=== PATIENT | female | born 1995 | race Two or more races ===

== ENCOUNTER 2019-12-08 13:48 | Emergency (ER) | payer OTHER ==
[~2019-12-08] VITALS: Ht 162.6 cm; Wt 63.5 kg
--- NOTE | 2019-12-08 13:50 | NUR ---
ED Nurse Note: pt brought in to ER by ambulance due to abdominal pain 10/10 with nausea x1 day. pt aao x4 and ambulatory. pt follows commands but moaning and grimacing for severe pain. per pt, she gave a a month ago without complication. no cardiac or pulmonary distress noted at this time. pt is on quality assurance monitor body.
[2019-12-08 14:00] VITALS: BP 145/89
--- NOTE | 2019-12-08 14:06 | NUR ---
ED Nurse Note: ROME at bedside. pt reported to ROME that abdominal pain started 2 hours ago right after she took crystal meth. no N/V/D at this time.
--- NOTE | 2019-12-08 14:11 | NUR ---
ED Nurse Note: pt ambulated to bathroom to provide urine with steady gait.
[2019-12-08] MEDS ORDERED: Morphine Sulfate 4mg/ml Inj (IV USE ONLY) IVP ONE (14:15)
--- NOTE | 2019-12-08 14:19 | Emergency Room Report ---
History of Present Illness General Chief Complaint: Abdominal Pain Source: Patient, EMS Present Illness HPI 24-year-old female history of section, presents with intra-abdominal pain that started 4 hours prior to arrival patient was utilizing methamphetamines, after smoking she started having pain, alleviating factors not utilize drugs severity is severe, constant patient presents for evaluation no nausea no vomiting no diarrhea no dysuria Allergies: Coded Allergies: No Known Allergies (Unverified , 12/08/19) COVID-19 Screening Contact w/high risk pt: No Recent Travel to affected area: No Experienced COVID-19 symptoms?: No Patient History Past Medical History: see triage record Reviewed Nursing Documentation: PMH: Agreed; PSxH: Agreed Nursing Documentation-PMH Past Medical History: No Stated History Review of Systems All Other Systems: negative except mentioned in HPI Physical Exam Vital Signs Date Time Temp Pulse Resp B/P (MAP) Pulse Ox O2 Delivery O2 Flow Rate FiO2 12/08/19 13:46 97.5 72 18 160/90 (113) 100 Room Air Sp02 EP Interpretation: reviewed, normal General Appearance: well appearing, no apparent distress, alert Head: normocephalic, atraumatic Eyes: bilateral eye PERRL, bilateral eye EOMI ENT: uvula midline, moist mucus membranes Neck: supple, thyroid normal, supple/symm/no masses Respiratory: lungs clear, no respiratory distress, no retraction, no accessory muscle use Cardiovascular #1: normal peripheral pulses, regular rate, rhythm, no edema, no gallop, no murmur Gastrointestinal: soft, no guarding, no rebound, tenderness - Right upper quadrant pain negative Ku's Musculoskeletal: normal inspection Neurologic: alert, oriented x3 Psychiatric: mood/affect normal Skin: no rash, warm/dry Medical Decision Making Diagnostic Impression: Primary Impression: Choledocholithiasis Additional Impression: Cholelithiasis Qualified Codes: K80.80 - Other cholelithiasis without obstruction ER Course 24-year-old female presents with right upper quadrant pain differential diagnosis includes cholelithiasis cholecystitis choledocholithiasis Patient given pain medications, ultrasound shows cholelithiasis without evidence of cholecystitis additionally patient may have choledocholithiasis with a common bile duct dilatation patient with a transaminitis Patient to be transferred to [facility] Reevaluation 5:41 PM patient wants leave AGAINST MEDICAL ADVICE The patient has requested to leave the ED against medical advice. The patient reason(s) for leaving include, but are not limited to, the following: I don't want to go to [facility]. I believe this patient is of sound mind and competent to refuse medical care. The patient is responding and asking questions appropriately. The patient is oriented to person, place and time. The patient is not psychotic, delusional, suicidal, homicidal or hallucinating. The patient demonstrates a normal mental capacity to make decisions regarding their healthcare. The patient is clinically sober and does not appear to be under the influence of any illicit drugs at this time. The patient has been advised of the risks, in layman terms, of leaving AMA which include, but are not limited to , coma, permanent disability, loss of current lifestyle, delay in diagnosis. Alternatives have been offered - the patient remains steadfast in their wish to leave. The patient has been advised that should they change their mind they are welcome to return to this hospital, or any other, at any time. The patient understands that in no way does an AMA discharge mean that I do not want them to have the best medical care available. To this end, I have provided appropriate prescriptions, referrals, and discharge instructions. The patient did sign AMA paperwork. The above discussion was witnessed by another member of staff. Laboratory Tests Test 12/08/19 14:20 White Blood Count 10.1 K/UL (4.8-10.8) Red Blood Count 4.12 M/UL (4.20-5.40) L Hemoglobin 9.5 G/DL (12.0-16.0) L Hematocrit 30.5 % (37.0-47.0) L Mean Corpuscular Volume 74 FL (80-99) L Mean Corpuscular Hemoglobin 23.1 PG (27.0-31.0) L Mean Corpuscular Hemoglobin Concent 31.2 G/DL (32.0-36.0) L Red Cell Distribution Width 17.6 % (11.6-14.8) H Platelet Count 469 K/UL (150-450) H Mean Platelet Volume 4.8 FL (6.5-10.1) L Neutrophils (%) (Auto) 76.9 % (45.0-75.0) H Lymphocytes (%) (Auto) 14.1 % (20.0-45.0) L Monocytes (%) (Auto) 7.5 % (1.0-10.0) Eosinophils (%) (Auto) 0.4 % (0.0-3.0) Basophils (%) (Auto) 1.2 % (0.0-2.0) Prothrombin Time 10.0 SEC (9.30-11.50) Prothrombin Time INR 0.9 (0.9-1.1) Activated Partial Thromboplast Time 28 SEC (23-33) Urine Color Brown Urine Appearance Clear Urine pH 5 (4.5-8.0) Urine Specific [place] 1.030 (1.005-1.035) Urine Protein 3+ (NEGATIVE) H Urine Glucose (UA) Negative (NEGATIVE) Urine Ketones 2+ (NEGATIVE) H Urine Blood 5+ (NEGATIVE) H Urine Nitrite Negative (NEGATIVE) Urine Bilirubin Negative (NEGATIVE) Urine Urobilinogen 1 MG/DL (0.0-1.0) H Urine Leukocyte Esterase 3+ (NEGATIVE) H Urine RBC 60-80 /HPF (0 - 2) H Urine WBC 40-60 /HPF (0 - 2) H Urine Squamous Epithelial Cells Few /LPF (NONE/OCC) Urine Bacteria Few /HPF (NONE) Urine Mucus Few /LPF (NONE/OCC) H Urine HCG, Qualitative Negative (NEGATIVE) Sodium Level 147 MMOL/L (136-145) H Potassium Level 3.5 MMOL/L (3.5-5.1) Chloride Level 110 MMOL/L (98-107) H Carbon Dioxide Level 25 MMOL/L (21-32) Anion Gap 12 mmol/L (5-15) Blood Urea Nitrogen 11 mg/dL (7-18) Creatinine 1.2 MG/DL (0.55-1.30) Estimated Glomerular Filtration Rate 54.3 mL/min (>60) Glucose Level 104 MG/DL (74-106) Calcium Level 9.3 MG/DL (8.5-10.1) Total Bilirubin 0.4 MG/DL (0.2-1.0) Aspartate Amino Transferase (AST) 109 U/L (15-37) H Alanine Aminotransferase (ALT) 91 U/L (12-78) H Alkaline Phosphatase 229 U/L (46-116) H Total Protein 8.2 G/DL (6.4-8.2) Albumin 4.3 G/DL (3.4-5.0) Globulin 3.9 g/dL Albumin/Globulin Ratio 1.1 (1.0-2.7) Lipase 63 U/L (73-393) L Human Chorionic Gonadotropin, Quant < 1 mIU/mL (1-6) L CT/MRI/US Diagnostic Results CT/MRI/US Diagnostic Results : Impression Ultrasound gallbladder cholelithiasis, dilated common bile duct Last Vital Signs Date Time Temp Pulse Resp B/P (MAP) Pulse Ox O2 Delivery O2 Flow Rate FiO2 12/08/19 13:46 97.5 72 18 160/90 (113) 100 Room Air Disposition: AGAINST MEDICAL ADVICE Condition: Stable Referrals: [facility]. [facility] Patient Instructions: Cholelithiasis, [id number] Additional Instructions: The patient was provided with discharge instructions, notified to follow-up with a primary care doctor and or specialist in the next 24-48 hours, and to return to the ED if they have worsening of their symptoms. Please note that this report is being documented using [employer] technology. This can lead to erroneous entry secondary to incorrect interpretation by the dictating instrument. Iain Navarro MD December 08, 2019 14:19
--- NOTE | 2019-12-08 14:26 | NUR ---
ED Nurse Note: urine and blood sent to lab. US initiated at bedside.
[2019-12-08 14:45] LABS: BASOPHILS % (AUTO) 1.2 % (0.0-2.0); EOSINOPHILS % (AUTO) 0.4 % (0.0-3.0); HEMATOCRIT 30.5 % (37.0-47.0); HEMOGLOBIN 9.5 G/DL (12.0-16.0); LYMPHOCYTES % (AUTO) 14.1 % (20.0-45.0); MEAN CORPUSCULAR VOLUME 74 FL (80-99); MONOCYTES % (AUTO) 7.5 % (1.0-10.0); NEUTROPHILS % (AUTO) 76.9 % (45.0-75.0); PLATELET COUNT 469 K/UL (150-450); RED BLOOD COUNT 4.12 M/UL (4.20-5.40); RED CELL DISTRIBUTION WIDTH 17.6 % (11.6-14.8); WHITE BLOOD COUNT 10.1 K/UL (4.8-10.8)
[2019-12-08 14:46] LABS: APPEARANCE,URINE CLEAR; BILIRUBIN, URINE NEGATIVE (NEGATIVE); COLOR,URINE BROWN; GLUCOSE, URINE (UA) NEGATIVE (NEGATIVE); KETONES,URINE 2+ (NEGATIVE); LEUKOCYTE ESTERASE ,URINE 3+ (NEGATIVE); NITRITE,URINE NEGATIVE (NEGATIVE); PH,URINE 5 (4.5-8.0); PROTEIN,URINE 3+ (NEGATIVE); UROBILINOGEN,URINE 1 MG/DL (0.0-1.0)
[2019-12-08 14:49] LABS: INR 0.9 (0.9-1.1)
[2019-12-08 14:52] LABS: ANION GAP 12 mmol/L (5-15); BLOOD UREA NITROGEN 11 mg/dL (7-18); CALCIUM 9.3 MG/DL (8.5-10.1); CARBON DIOXIDE 25 MMOL/L (21-32); CHLORIDE 110 MMOL/L (98-107); CREATININE 1.2 MG/DL (0.55-1.30); POTASSIUM 3.5 MMOL/L (3.5-5.1); SODIUM 147 MMOL/L (136-145)
[2019-12-08 14:57] LABS: ALANINE AMINOTRANSFERASE 91 U/L (12-78); ALBUMIN 4.3 G/DL (3.4-5.0); ALBUMIN/GLOBULIN RATIO 1.1 (1.0-2.7); ALKALINE PHOSPHATASE 229 U/L (46-116); ASPARTATE AMINO TRANSFERASE 109 U/L (15-37); BILIRUBIN,TOTAL 0.4 MG/DL (0.2-1.0)
--- NOTE | 2019-12-08 15:25 | Diagnostic Imaging Report ---
Indication: Abnormal liver function tests, abdominal pain Technique: Ortega-scale and duplex images of the upper abdomen were obtained. Doppler interrogation of the pancreatic and hepatic vessels Comparison: none Findings: Gallbladder history small gallstones. No gallbladder wall thickening or pericholecystic fluid. Sonographic Ku's sign is negative. Common bile duct measures 10 mm in diameter. Calculi are seen within the downstream common bile duct. There is mild central intrahepatic biliary ductal dilatation. Liver demonstrates normal echogenicity, no focal abnormality. Portal vein and hepatic veins are patent. Pancreas is unremarkable. Spleen is unremarkable. Left kidney measures 10.4 cm in length. Right kidney measures 10.2 cm length. Both kidneys demonstrate normal echogenicity. There is no hydronephrosis. No focal abnormality . Non-aneurysmal abdominal aorta . Impression: Cholelithiasis Choledocholithiasis. Dilated extrahepatic bile ducts No other significant abnormality
[2019-12-08 16:48] VITALS: BP 145/89
--- NOTE | 2019-12-08 16:49 | NUR ---
ED Nurse Note: patient is pain free, resting in the bed with eyes close, NAD noted, awaiting for transfer information.
[2019-12-08 17:46] VITALS: BP 145/89
--- NOTE | 2019-12-08 17:46 | NUR ---
ED Nurse Note: Patient left AMA. Stated does not want to be transfered to another hospital, want to be admited to OM. Dr. Navarro explained to the patient all risks and dangers if she is going to leave AMA. Patient decided to leave AMA anyway. Patient was able to walk with steady gait, VSS at this time, AAO x4, skin is warm to touch. Patient left with all belongings.
--- NOTE | 2019-12-08 18:07 | NUR ---
AMA: SEE AMA FORM.
== END 2019-12-08 17:46 | disposition left against medical advice (07) ==
LOC: EDBD 13:48 → EMR 15:15 → EDBEDREQ 15:54 → EMR 17:46 → CANBEDREQ 17:51
DX: K80.50 Calculus of bile duct without cholangitis or cholecystitis without obstruction (principal); K80.80 Other cholelithiasis without obstruction; Z53.29 Procedure and treatment not carried out because of patient's decision for other reasons; F15.90 Other stimulant use, unspecified, uncomplicated
CPT/HCPCS: 36415; 76700; 80053; 81003; 81025; 83690; 84702; 85025; 85610; 85730; 87086; 96361; 96374; 96375; J2270; J2405; J7030; Z7502; 99284

== ENCOUNTER 2019-12-20 23:35 | Emergency (ER) | payer OTHER ==
[~2019-12-20] VITALS: Ht 167.6 cm; Wt 63.5 kg
[2019-12-20 23:38] VITALS: BP 112/62
--- NOTE | 2019-12-20 23:38 | NUR ---
ED Nurse Note: Patient brought in by ambulance with complaints of sudden onset of abdominal pain similar to recent gall bladder pain 2 weeks ago. PAtienty admits ton taking methn before onset of pain. Blood specimen collected and sent to lab.
--- NOTE | 2019-12-20 23:43 | Emergency Room Report ---
History of Present Illness General Chief Complaint: Abdominal Pain Source: Patient Present Illness [facility] This a 24-year-old female with a history of methamphetamine abuse. She presents with chief complaint of abdominal pain. Onset was 4 hours ago. Pain is diffuse in nature. Occurred after smoking methamphetamine. She was here 2 weeks ago for similar complaint. Work-up there showed cholelithiasis. Patient was to be transferred to [facility] but she signed out AMA. She has similar symptom in the past but she has nausea and vomiting but no diarrhea. No fever chills. Pain is 10 out of 10. Came in by ambulance. Allergies: Coded Allergies: No Known Allergies (Unverified , 12/08/19) COVID-19 Screening Contact w/high risk pt: No Recent Travel to affected area: No Experienced COVID-19 symptoms?: No COVID-19 Testing performed STORE CASHIER: No Patient History Past Medical History: see triage record, old chart reviewed Past Surgical History: none Pertinent Family History: none Social History: Reports: smoking, drug use Last Menstrual Period: 11/26/19 Now: No Immunizations: other Reviewed Nursing Documentation: PMH: Agreed; PSxH: Agreed Nursing Documentation-PMH Past Medical History: No History, Except For Review of Systems Eye: Denies: eye pain, blurred vision ENT: Denies: ear pain, nose congestion, throat swelling Respiratory: Denies: cough, shortness of breath Cardiovascular: Denies: chest pain, palpitations Gastrointestinal: Reports: abdominal pain, nausea, vomiting; Denies: diarrhea Musculoskeletal: Denies: back pain, joint pain Skin: Denies: rash Neurological: Denies: headache, numbness Endocrine: Denies: increased thirst, increased urine Hematologic/Lymphatic: Denies: easy bruising All Other Systems: negative except mentioned in HPI Physical Exam Vital Signs Date Time Temp Pulse Resp B/P (MAP) Pulse Ox O2 Delivery O2 Flow Rate FiO2 12/20/19 23:36 99.0 102 16 112/62 (79) 99 Room Air Vitals normal Sp02 EP Interpretation: reviewed, normal General Appearance: well appearing, no apparent distress, alert Head: normocephalic, atraumatic Eyes: bilateral eye PERRL, bilateral eye EOMI ENT: hearing grossly normal, normal pharynx Neck: full range of motion, supple, no meningismus Respiratory: chest non-tender, lungs clear, normal breath sounds Cardiovascular #1: regular rate, rhythm, no murmur Gastrointestinal: normal bowel sounds, no mass, no organomegaly, no bruit, non- distended, tenderness - Diffuse Musculoskeletal: back normal, normal range of motion, gait/station normal Psychiatric: mood/affect normal Medical Decision Making Diagnostic Impression: Primary Impression: Cholelithiasis Qualified Codes: K80.20 - Calculus of gallbladder without cholecystitis without obstruction Additional Impressions: Methamphetamine abuse UTI (urinary tract infection) Qualified Codes: N30.00 - Acute cystitis without hematuria ER Course Patient presents with abdominal pain. This may be secondary to drug abuse and or cholelithiasis. Pain is resolved now. Patient felt better. She does have a mild urinary tract infection. May be contamination. I will go ahead and put her on antibiotics. She wants to go home. Will discharge home. Last Vital Signs Date Time Temp Pulse Resp B/P (MAP) Pulse Ox O2 Delivery O2 Flow Rate FiO2 12/20/19 23:36 99.0 102 16 112/62 (79) 99 Room Air Status: improved Disposition: HOME, SELF-CARE Condition: Stable Scripts Nitrofurantoin Monohyd/M-Cryst (Nitrofurantoin Christian-Mcr 100 mg) 100 Mg Capsule 100 MG ORAL Q12H, #14 CAP Prov: Ivan Cadena MD 12/21/19 Hydrocodone/Acetaminophen 5-325* (HYDROCODONE/ACETAMINOPHEN 5-325*) 1 Each Tablet 1 TAB ORAL Q6H PRN for For Pain, #15 TAB 0 Refills Prov: Ivan Cadena MD 12/21/19 Additional Instructions: Stop using drugs. Follow-up with your doctor in 7 days. You may need a referral to see a surgeon. Return if worse. Ivan Cadena MD December 20, 2019 23:43
[2019-12-20] MEDS ORDERED: HYDROmorphone 1mg/ml Carpuject IVP ONE (23:45)
[2019-12-21 00:13] LABS: BASOPHILS % (AUTO) 1.2 % (0.0-2.0); HEMATOCRIT 32.6 % (37.0-47.0); HEMOGLOBIN 10.6 G/DL (12.0-16.0); LYMPHOCYTES % (AUTO) 22.1 % (20.0-45.0); MEAN CORPUSCULAR VOLUME 71 FL (80-99); MONOCYTES % (AUTO) 7.1 % (1.0-10.0); NEUTROPHILS % (AUTO) 67.6 % (45.0-75.0); PLATELET COUNT 539 K/UL (150-450); RED BLOOD COUNT 4.62 M/UL (4.20-5.40); RED CELL DISTRIBUTION WIDTH 16.6 % (11.6-14.8); WHITE BLOOD COUNT 9.9 K/UL (4.8-10.8)
--- NOTE | 2019-12-21 00:17 | NUR ---
ED Nurse Note: Patient appears, calm, comfortable with no s/s of acute distress. Vital signs stable and updated. Will continue to monitor for plan of care.
[2019-12-21 00:18] VITALS: BP 124/78
[2019-12-21 00:18] LABS: ANION GAP 11 mmol/L (5-15); BLOOD UREA NITROGEN 13 mg/dL (7-18); CALCIUM 9.6 MG/DL (8.5-10.1); CARBON DIOXIDE 27 MMOL/L (21-32); CHLORIDE 106 MMOL/L (98-107); CREATININE 1.2 MG/DL (0.55-1.30); POTASSIUM 3.6 MMOL/L (3.5-5.1); SODIUM 144 MMOL/L (136-145)
[2019-12-21 00:22] LABS: ALANINE AMINOTRANSFERASE 99 U/L (12-78); ALBUMIN 4.5 G/DL (3.4-5.0); ALBUMIN/GLOBULIN RATIO 1.2 (1.0-2.7); ALKALINE PHOSPHATASE 246 U/L (46-116); ASPARTATE AMINO TRANSFERASE 168 U/L (15-37); BILIRUBIN,TOTAL 0.7 MG/DL (0.2-1.0)
--- NOTE | 2019-12-21 00:31 | NUR ---
ED Nurse Note: Patient currently voiding at bedside for urine specimen collection via bedside commode.
--- NOTE | 2019-12-21 00:47 | NUR ---
ED Nurse Note: Urine specimen sent to lab.
[2019-12-21 00:49] LABS: BILIRUBIN, URINE 1+ (NEGATIVE); GLUCOSE, URINE (UA) NEGATIVE (NEGATIVE); KETONES,URINE 1+ (NEGATIVE); LEUKOCYTE ESTERASE ,URINE 1+ (NEGATIVE); NITRITE,URINE NEGATIVE (NEGATIVE); PH,URINE 5 (4.5-8.0); PROTEIN,URINE 2+ (NEGATIVE); UROBILINOGEN,URINE 8 MG/DL (0.0-1.0)
[2019-12-21 00:59] LABS: APPEARANCE,URINE SLIGHTLY CLOUDY; COLOR,URINE AMBER
--- NOTE | 2019-12-21 01:15 | NUR ---
Patients brother called-per ER MD he can pick her up. Brother on his way here.
[2019-12-21] MEDS ORDERED: MACROBID100 MG ORAL (01:27)
[2019-12-21] MEDS ORDERED: HYDROCODON-ACE1 EA15 ORAL (01:27)
[2019-12-21] MEDS ORDERED: cefTRIAXone 1 GM in NS 55 ML IVPB ONE (01:30)
[2019-12-21 01:55] VITALS: BP 126/73
--- NOTE | 2019-12-21 01:55 | NUR ---
ER DISCHARGE NOTE: Patient is cleared to be discharged per ERMD, pt is aox4, on room air, with stable vital signs. pt was given dc and prescription instructions, pt was able to verbalize understanding, pt id band and iv site removed without complications. pt is able to ambulate with steady gait. pt took all belongings.
== END 2019-12-21 01:55 | disposition home or self-care (01) ==
LOC: EDBD 23:35 → EMR 23:46
DX: K80.20 Calculus of gallbladder without cholecystitis without obstruction (principal); F15.10 Other stimulant abuse, uncomplicated; N30.00 Acute cystitis without hematuria; F17.200 Nicotine dependence, unspecified, uncomplicated
CPT/HCPCS: 36415; 80053; 81003; 81025; 83690; 85025; 87086; 96361; 96365; 96375; J0696; J1170; J2405; J7030; Z7502; 99284

== ENCOUNTER 2019-12-23 05:59 | Emergency (ER) | payer OTHER ==
[~2019-12-23] VITALS: Ht 154.9 cm; Wt 54.4 kg
[~2019-12-23 05:59] MED LIST: HYDROCODON-ACE1 EA15 ORAL; MACROBID100 MG ORAL
[2019-12-23 06:20] VITALS: BP 120/97
--- NOTE | 2019-12-23 06:20 | NUR ---
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 Pt also reports nausea, but no diarrhea or vomiting. Pt was recently seen at [facility] and diagnosed with gallstones and UTI which she was prescribed medicatin for and was not able to obtain from the pharmacy. Pt is aaox4, breathing is normal and unlabored. Pt appears anxious and moaning in pain. 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 Will cont. to monitor. Safety measures in place.
[2019-12-23] MEDS ORDERED: Morphine Sulfate 4mg/ml Inj (IV USE ONLY) IVP ONE (06:30)
[2019-12-23] MEDS ORDERED: Omnipaque-300 100ml vial INJ PRN (06:45)
[2019-12-23 06:51] LABS: BASOPHILS % (AUTO) 1.3 % (0.0-2.0); EOSINOPHILS % (AUTO) 4.4 % (0.0-3.0); HEMOGLOBIN 9.8 G/DL (12.0-16.0); LYMPHOCYTES % (AUTO) 22.2 % (20.0-45.0); MEAN CORPUSCULAR VOLUME 71 FL (80-99); MONOCYTES % (AUTO) 7.4 % (1.0-10.0); NEUTROPHILS % (AUTO) 64.8 % (45.0-75.0); PLATELET COUNT 481 K/UL (150-450); RED BLOOD COUNT 4.25 M/UL (4.20-5.40); RED CELL DISTRIBUTION WIDTH 16.5 % (11.6-14.8); WHITE BLOOD COUNT 10.5 K/UL (4.8-10.8)
[2019-12-23 06:52] LABS: APPEARANCE,URINE CLEAR; BILIRUBIN, URINE NEGATIVE (NEGATIVE); GLUCOSE, URINE (UA) NEGATIVE (NEGATIVE); KETONES,URINE NEGATIVE (NEGATIVE); LEUKOCYTE ESTERASE ,URINE 1+ (NEGATIVE); NITRITE,URINE NEGATIVE (NEGATIVE); PH,URINE 6 (4.5-8.0); PROTEIN,URINE 2+ (NEGATIVE); UROBILINOGEN,URINE 1 MG/DL (0.0-1.0)
--- NOTE | 2019-12-23 06:56 | Emergency Room Report ---
History of Present Illness General Chief Complaint: Abdominal Pain Source: Patient Present Illness HPI 24-year-old female presents to ED for abdominal pain. Was seen here a few days ago for same pain. Noted to have gallstones. Patient states she is unable to fill her pain prescriptions because she does not have an ID. Pain is sharp, 9 out of 10, nonradiating. Notes nausea, denies vomiting. Denies fevers or chills. No other aggravating relieving factors. 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: No Patient History Past Medical History: none Past Surgical History: none Pertinent Family History: none Social History: Denies: smoking, alcohol use, drug use Now: No Immunizations: UTD Reviewed Nursing Documentation: PMH: Agreed; PSxH: Agreed Nursing Documentation-PMH Past Medical History: No History, Except For Review of Systems All Other Systems: negative except mentioned in HPI Physical Exam Vital Signs Date Time Temp Pulse Resp B/P (MAP) Pulse Ox O2 Delivery O2 Flow Rate FiO2 12/23/19 06:07 97.5 63 18 147/84 (105) 100 Room Air Sp02 EP Interpretation: reviewed, normal General Appearance: alert, GCS 15, non-toxic, mild distress Head: normocephalic, atraumatic Eyes: bilateral eye normal inspection, bilateral eye PERRL ENT: hearing grossly normal, normal pharynx, no angioedema, normal voice Neck: full range of motion, supple/symm/no masses Respiratory: chest non-tender, lungs clear, normal breath sounds, speaking full sentences Cardiovascular #1: regular rate, rhythm, no edema Cardiovascular #2: 2+ carotid (R), 2+ carotid (L), 2+ radial (R), 2+ radial (L) , 2+ dorsalis pedis (R), 2+ dorsalis pedis (L) Gastrointestinal: normal bowel sounds, soft, non-distended, no guarding, no rebound, tenderness - RUQ Rectal: deferred Genitourinary: normal inspection, no CVA tenderness Musculoskeletal: back normal, normal range of motion, gait/station normal, non- tender Neurologic: alert, motor strength/tone normal, oriented x3, sensory intact, responsive, speech normal Psychiatric: judgement/insight normal, memory normal, mood/affect normal, no suicidal/homicidal ideation Reflexes: 3+ bicep (R), 3+ bicep (L), 3+ tricep (R), 3+ tricep (L), 3+ knee (R) , 3+ knee (L) Skin: no rash Lymphatic: no adenopathy Medical Decision Making Diagnostic Impression: Primary Impression: Biliary colic Additional Impression: Methamphetamine abuse ER Course Hospital Course 24-year-old F presents to ED with RUQ pain Differential diagnoses include: Appendicitis, cholecystitis, small bowel obstruction Clinical course 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 After initial history and physical I ordered labs, IV fluids, UA, pain medication and CT Labs - no leukocytosis, Hb/Hct stable. electrolytes ok. LFTs elevated. CT A/P - distended GB Antibiotics given. Patient continues to have pain. Patient has been here 3 times for similar presentation this month. Patient agrees to admission at this time. Because of insurance patient will be transferred I feel this is a highly complex case requiring extensive working including EKG/ Rhythm strip, Xray/CT/US, Blood/urine lab work, repeat exams while in ED, and administration of strong opiates/narcotics for pain control, admission to hospital or close patient follow up. Diagnosis - biliary colic, methammphetamine abuse transferred in serious condition Labs Test 12/23/19 06:30 White Blood Count 10.5 K/UL (4.8-10.8) Red Blood Count 4.25 M/UL (4.20-5.40) Hemoglobin 9.8 G/DL (12.0-16.0) Hematocrit 30.0 % (37.0-47.0) Mean Corpuscular Volume 71 FL (80-99) Mean Corpuscular Hemoglobin 23.1 PG (27.0-31.0) Mean Corpuscular Hemoglobin Concent 32.7 G/DL (32.0-36.0) Red Cell Distribution Width 16.5 % (11.6-14.8) Platelet Count 481 K/UL (150-450) Mean Platelet Volume 4.8 FL (6.5-10.1) Neutrophils (%) (Auto) 64.8 % (45.0-75.0) Lymphocytes (%) (Auto) 22.2 % (20.0-45.0) Monocytes (%) (Auto) 7.4 % (1.0-10.0) Eosinophils (%) (Auto) 4.4 % (0.0-3.0) Basophils (%) (Auto) 1.3 % (0.0-2.0) Urine Color Yellow Urine Appearance Clear Urine pH 6 (4.5-8.0) Urine Specific [place] 1.025 (1.005-1.035) Urine Protein 2+ (NEGATIVE) Urine Glucose (UA) Negative (NEGATIVE) Urine Ketones Negative (NEGATIVE) Urine Blood 1+ (NEGATIVE) Urine Nitrite Negative (NEGATIVE) Urine Bilirubin Negative (NEGATIVE) Urine Urobilinogen 1 MG/DL (0.0-1.0) Urine Leukocyte Esterase 1+ (NEGATIVE) Urine RBC 0-2 /HPF (0 - 2) Urine WBC 5-10 /HPF (0 - 2) Urine Squamous Epithelial Cells Few /LPF (NONE/OCC) Urine Bacteria Few /HPF (NONE) Urine Mucus Few /LPF (NONE/OCC) Urine HCG, Qualitative Negative (NEGATIVE) Sodium Level 141 MMOL/L (136-145) Potassium Level 3.5 MMOL/L (3.5-5.1) Chloride Level 105 MMOL/L (98-107) Carbon Dioxide Level 25 MMOL/L (21-32) Anion Gap 11 mmol/L (5-15) Blood Urea Nitrogen 13 mg/dL (7-18) Creatinine 1.1 MG/DL (0.55-1.30) Estimat Glomerular Filtration Rate > 60 mL/min (>60) Glucose Level 108 MG/DL (74-106) Calcium Level 9.7 MG/DL (8.5-10.1) Total Bilirubin 0.4 MG/DL (0.2-1.0) Aspartate Amino Transf (AST/SGOT) 130 U/L (15-37) Alanine Aminotransferase (ALT/SGPT) 94 U/L (12-78) Alkaline Phosphatase 226 U/L (46-116) Total Protein 7.7 G/DL (6.4-8.2) Albumin 4.1 G/DL (3.4-5.0) Globulin 3.6 g/dL Albumin/Globulin Ratio 1.1 (1.0-2.7) Lipase 140 U/L (73-393) Urine Opiates Screen Negative (NEGATIVE) Urine Barbiturates Screen Negative (NEGATIVE) Phencyclidine (PCP) Screen Negative (NEGATIVE) Urine Amphetamines Screen Positive (NEGATIVE) Urine Benzodiazepines Screen Negative (NEGATIVE) Urine Cocaine Screen Negative (NEGATIVE) Urine Marijuana (THC) Screen Positive (NEGATIVE) CT/MRI/US Diagnostic Results CT/MRI/US Diagnostic Results : Imaging Test Ordered: CT A/P Impression FINDINGS: Lung bases: Unremarkable. No mass. No consolidation. ABDOMEN: Liver: Mild periportal edema, nonspecific. Focal low density in the medial left hepatic lobe along the falciform ligament likely pseudomass. Gallbladder and bile ducts: Mildly distended gallbladder, nonspecific. No secondary signs for acute cholecystitis. Prominent common bile duct, nonspecific. Pancreas: Unremarkable. No mass. No ductal dilation. Spleen: Unremarkable. No splenomegaly. Adrenals: Unremarkable. No mass. Kidneys and ureters: Presumed contrast in the renal collecting system which limited evaluation for detecting nonobstructing renal calculi. Stomach and bowel: Paucity of intra-abdominal fat and absence oral contrast limit evaluation of the GI tract. Apparent thickening of the rectosigmoid colon which may partly reflect under distention. Recommend clinical correlation and follow-up to exclude developing inflammatory/infectious colitis. Nonspecific bowel gas pattern with mild to moderate stool. PELVIS: Appendix: Nonspecific soft tissue stranding along the mesentery and right lower quadrant peritoneal fat. No secondary signs for appendicitis. Bladder: Thickening of the bladder wall likely due to under distention. Recommend clinical correlation and follow-up to exclude developing cystitis. Reproductive: Retroverted uterus. ABDOMEN and PELVIS: Intraperitoneal space: Small free fluid in the pelvis, nonspecific. No free air. Bones/joints: No acute fracture. No dislocation. Soft tissues: Tiny periumbilical hernia containing fat. Vasculature: Unremarkable. No abdominal aortic aneurysm. Lymph nodes: Unremarkable. No enlarged lymph nodes. IMPRESSION: 1. Mild thickening of the rectosigmoid colon which may partly reflect underdistention. Recommend clinical correlation and follow-up to exclude developing inflammatory/infectious colitis. 2. Tiny free fluid in the pelvis, nonspecific. No free air. 3. Thickening of the bladder wall likely due to under distention. Recommend clinical correlation and follow-up to exclude developing cystitis. 4. Nonspecific bowel gas pattern with mild to moderate retained stool. Paucity of intra-abdominal fat and absence oral contrast limit evaluation of the GI tract. 5. No CT evidence for appendicitis. 6. Distended gallbladder, nonspecific. Last Vital Signs Date Time Temp Pulse Resp B/P (MAP) Pulse Ox O2 Delivery O2 Flow Rate FiO2 12/23/19 06:20 63 18 Room Air 12/23/19 06:20 97.5 120/97 100 Status: improved Disposition: SHORT-TERM HOSP Condition: Serious Referrals: [facility],REFERRING (PCP) Willis Live MD December 23, 2019 06:56
[2019-12-23 06:58] LABS: COLOR,URINE YELLOW
[2019-12-23 07:03] LABS: ANION GAP 11 mmol/L (5-15); BLOOD UREA NITROGEN 13 mg/dL (7-18); CALCIUM 9.7 MG/DL (8.5-10.1); CARBON DIOXIDE 25 MMOL/L (21-32); CHLORIDE 105 MMOL/L (98-107); CREATININE 1.1 MG/DL (0.55-1.30); POTASSIUM 3.5 MMOL/L (3.5-5.1); SODIUM 141 MMOL/L (136-145)
[2019-12-23 07:08] LABS: ALANINE AMINOTRANSFERASE 94 U/L (12-78); ALBUMIN 4.1 G/DL (3.4-5.0); ALBUMIN/GLOBULIN RATIO 1.1 (1.0-2.7); ALKALINE PHOSPHATASE 226 U/L (46-116); ASPARTATE AMINO TRANSFERASE 130 U/L (15-37); BILIRUBIN,TOTAL 0.4 MG/DL (0.2-1.0)
--- NOTE | 2019-12-23 07:10 | NUR ---
HAND-OFF: Report given to PAUL Dunlap and endorsed plan of care.
--- NOTE | 2019-12-23 07:11 | NUR ---
ED Nurse Note: Received patient in bed, patient is resting in bed. 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
--- NOTE | 2019-12-23 07:15 | NUR ---
ED Nurse Note: patient taken to CT scan
--- NOTE | 2019-12-23 07:25 | NUR ---
ED Nurse Note: patient taken back from CT scan.
--- NOTE | 2019-12-23 07:26 | NUR ---
ED Nurse Note: patient placed back on the monitor, patient is receiving IVF as ordered without complications.
[2019-12-23 07:48] VITALS: BP 126/73
--- NOTE | 2019-12-23 07:50 | Diagnostic Imaging Report ---
EXAM: CT Abdomen and Pelvis With Intravenous Contrast CLINICAL HISTORY: ABD PAIN TECHNIQUE: Axial computed tomography images of the abdomen and pelvis with intravenous contrast. CTDI is 3.9 mGy and DLP is 202.1 mGy-cm. One or more of the following dose reduction techniques were used: automated exposure control, adjustment of the mA and/or kV according to patient size, use of iterative reconstruction technique. COMPARISON: No prior CT FINDINGS: Lung bases: Unremarkable. No mass. No consolidation. ABDOMEN: Liver: Mild periportal edema, nonspecific. Focal low density in the medial left hepatic lobe along the falciform ligament likely pseudomass. Gallbladder and bile ducts: Mildly distended gallbladder, nonspecific. No secondary signs for acute cholecystitis. Prominent common bile duct, nonspecific. Pancreas: Unremarkable. No mass. No ductal dilation. Spleen: Unremarkable. No splenomegaly. Adrenals: Unremarkable. No mass. Kidneys and ureters: Presumed contrast in the renal collecting system which limited evaluation for detecting nonobstructing renal calculi. Stomach and bowel: Paucity of intra-abdominal fat and absence oral contrast limit evaluation of the GI tract. Apparent thickening of the rectosigmoid colon which may partly reflect under distention. Recommend clinical correlation and follow-up to exclude developing inflammatory/infectious colitis. Nonspecific bowel gas pattern with mild to moderate stool. PELVIS: Appendix: Nonspecific soft tissue stranding along the mesentery and right lower quadrant peritoneal fat. No secondary signs for appendicitis. Bladder: Thickening of the bladder wall likely due to under distention. Recommend clinical correlation and follow-up to exclude developing cystitis. Reproductive: Retroverted uterus. ABDOMEN and PELVIS: Intraperitoneal space: Small free fluid in the pelvis, nonspecific. No free air. Bones/joints: No acute fracture. No dislocation. Soft tissues: Tiny periumbilical hernia containing fat. Vasculature: Unremarkable. No abdominal aortic aneurysm. Lymph nodes: Unremarkable. No enlarged lymph nodes. IMPRESSION: 1. Mild thickening of the rectosigmoid colon which may partly reflect underdistention. Recommend clinical correlation and follow-up to exclude developing inflammatory/infectious colitis. 2. Tiny free fluid in the pelvis, nonspecific. No free air. 3. Thickening of the bladder wall likely due to under distention. Recommend clinical correlation and follow-up to exclude developing cystitis. 4. Nonspecific bowel gas pattern with mild to moderate retained stool. Paucity of intra-abdominal fat and absence oral contrast limit evaluation of the GI tract. 5. No CT evidence for appendicitis. 6. Distended gallbladder, nonspecific.
[2019-12-23] MEDS ORDERED: cefTRIAXone 1 GM in NS 55 ML IVPB ONE (09:00)
--- NOTE | 2019-12-23 11:19 | NUR ---
ED Nurse Note: report given to Diana MILLER at [facility], patient left with [facility] with all of her belongings
[2019-12-23 11:27] VITALS: BP 126/73
== END 2019-12-23 11:20 | disposition short-term general hospital (02) ==
LOC: EMR 06:15
DX: K80.50 Calculus of bile duct without cholangitis or cholecystitis without obstruction (principal); F15.10 Other stimulant abuse, uncomplicated; R11.0 Nausea; K42.9 Umbilical hernia without obstruction or gangrene
CPT/HCPCS: 36415; 74177; 80053; 80307; 81003; 81025; 83690; 85025; 96361; 96365; 96375; J0696; J2270; J2405; J7030; Q9967; S0028; Z7502; 99285

== ENCOUNTER 2019-12-26 19:08 | Emergency (ER) | payer OTHER ==
[~2019-12-26] VITALS: Ht 157.5 cm; Wt 54.4 kg
[2019-12-26 19:18] VITALS: BP 134/80
[2019-12-26] MEDS ORDERED: Morphine Sulfate 4mg/ml Inj (IV USE ONLY) IVP ONE (19:30)
[2019-12-26 20:33] LABS: BASOPHILS % (AUTO) 1.5 % (0.0-2.0); HEMATOCRIT 33.4 % (37.0-47.0); HEMOGLOBIN 9.8 G/DL (12.0-16.0); LYMPHOCYTES % (AUTO) 22.1 % (20.0-45.0); MEAN CORPUSCULAR VOLUME 76 FL (80-99); MONOCYTES % (AUTO) 7.6 % (1.0-10.0); NEUTROPHILS % (AUTO) 67.8 % (45.0-75.0); PLATELET COUNT 505 K/UL (150-450); RED BLOOD COUNT 4.38 M/UL (4.20-5.40); RED CELL DISTRIBUTION WIDTH 18.7 % (11.6-14.8)
[2019-12-26 20:35] LABS: ANION GAP 12 mmol/L (5-15); BLOOD UREA NITROGEN 7 mg/dL (7-18); CALCIUM 9.8 MG/DL (8.5-10.1); CARBON DIOXIDE 25 MMOL/L (21-32); CHLORIDE 106 MMOL/L (98-107); CREATININE 1.2 MG/DL (0.55-1.30); POTASSIUM 3.9 MMOL/L (3.5-5.1); SODIUM 143 MMOL/L (136-145)
[2019-12-26 20:39] LABS: ALANINE AMINOTRANSFERASE 89 U/L (12-78); ALBUMIN 4.5 G/DL (3.4-5.0); ALBUMIN/GLOBULIN RATIO 1.2 (1.0-2.7); ALKALINE PHOSPHATASE 203 U/L (46-116); ASPARTATE AMINO TRANSFERASE 79 U/L (15-37); BILIRUBIN,TOTAL 0.5 MG/DL (0.2-1.0)
[2019-12-26 21:13] VITALS: BP 134/80
--- NOTE | 2019-12-27 23:10 | Emergency Room Report ---
History of Present Illness General Chief Complaint: Abdominal Pain Source: Patient Present Illness HPI Patient presents with complaints of abdominal pain Ongoing for the past few hours Patient reports that the pain initially started 3 to 4 weeks ago Patient has been here several times and after several visits was requested for admission and transfer secondary to insurance purposes Patient reports that she was at [facility] was getting set for surgery however tested positive for Covid-19 She was being observed and getting retested for surgery however she left against advice And presents with repeat abdominal pain Denies any diarrhea denies any fevers or chills remains fairly localized to the epigastric and right upper quadrant Allergies: Coded Allergies: No Known Allergies (Unverified , 12/08/19) COVID-19 Screening Contact w/high risk pt: No Recent Travel to affected area: No Experienced COVID-19 symptoms?: No COVID-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 Patient History Past Medical History: see triage record Last Menstrual Period: na Now: No Reviewed Nursing Documentation: PMH: Agreed; PSxH: Agreed Nursing Documentation-PMH Past Medical History: No History, Except For Review of Systems All Other Systems: negative except mentioned in HPI Physical Exam Vital Signs Date Time Temp Pulse Resp B/P (MAP) Pulse Ox O2 Delivery O2 Flow Rate FiO2 12/26/19 19:14 98.1 87 18 134/80 (98) 97 Room Air Sp02 EP Interpretation: reviewed, normal General Appearance: well appearing, no apparent distress Head: normocephalic, atraumatic Eyes: bilateral eye PERRL, bilateral eye EOMI ENT: hearing grossly normal, normal pharynx, TMs + canals normal, uvula midline Neck: full range of motion, supple, no meningismus, no bony tend Respiratory: lungs clear, normal breath sounds, no rhonchi, no respiratory distress, no retraction, no accessory muscle use Cardiovascular #1: normal peripheral pulses, regular rate, rhythm, no edema, no gallop, no JVD, no murmur Gastrointestinal: normal bowel sounds, non tender - On palpation however points to the epigastric right upper quadrant area subjectively, soft, no mass, no organomegaly, non-distended, no guarding, no hernia, no pulsatile mass, no rebound Genitourinary: no CVA tenderness Musculoskeletal: normal inspection Neurologic: motor strength/tone normal, wind instrument repairer III-XII nml as tested, oriented x3 , sensory intact, responsive Psychiatric: mood/affect normal Skin: no rash Lymphatic: normal inspection, no adenopathy Medical Decision Making Diagnostic Impression: Primary Impression: biliary colic ER Course With the patient's history and examination, multiple differentials considered, including but not limited to , ectopic , ovarian torsion, gastritis, cholecystitis, pancreatitis, appendicitis Patient's repeat blood work appears fairly similar to previous examinations mild elevation of LFTs Patient's white blood cell count remains normal Patient was recently admitted to the hospital and left against advice At this time I do not see any further necessity for repeat admission Patient remains calm and improved with her discomfort Patient is encouraged to follow with [facility] given that she was set for surgery at that facility And return with any worsening symptoms Labs Test 12/26/19 19:29 White Blood Count 7.0 K/UL (4.8-10.8) Red Blood Count 4.38 M/UL (4.20-5.40) Hemoglobin 9.8 G/DL (12.0-16.0) Hematocrit 33.4 % (37.0-47.0) Mean Corpuscular Volume 76 FL (80-99) Mean Corpuscular Hemoglobin 22.5 PG (27.0-31.0) Mean Corpuscular Hemoglobin Concent 29.4 G/DL (32.0-36.0) Red Cell Distribution Width 18.7 % (11.6-14.8) Platelet Count 505 K/UL (150-450) Mean Platelet Volume 5.8 FL (6.5-10.1) Neutrophils (%) (Auto) 67.8 % (45.0-75.0) Lymphocytes (%) (Auto) 22.1 % (20.0-45.0) Monocytes (%) (Auto) 7.6 % (1.0-10.0) Eosinophils (%) (Auto) 1.0 % (0.0-3.0) Basophils (%) (Auto) 1.5 % (0.0-2.0) Sodium Level 143 MMOL/L (136-145) Potassium Level 3.9 MMOL/L (3.5-5.1) Chloride Level 106 MMOL/L (98-107) Carbon Dioxide Level 25 MMOL/L (21-32) Anion Gap 12 mmol/L (5-15) Blood Urea Nitrogen 7 mg/dL (7-18) Creatinine 1.2 MG/DL (0.55-1.30) Estimat Glomerular Filtration Rate 54.3 mL/min (>60) Glucose Level 103 MG/DL (74-106) Calcium Level 9.8 MG/DL (8.5-10.1) Total Bilirubin 0.5 MG/DL (0.2-1.0) Aspartate Amino Transf (AST/SGOT) 79 U/L (15-37) Alanine Aminotransferase (ALT/SGPT) 89 U/L (12-78) Alkaline Phosphatase 203 U/L (46-116) Total Protein 8.3 G/DL (6.4-8.2) Albumin 4.5 G/DL (3.4-5.0) Globulin 3.8 g/dL Albumin/Globulin Ratio 1.2 (1.0-2.7) Lipase 71 U/L (73-393) Last Vital Signs Date Time Temp Pulse Resp B/P (MAP) Pulse Ox O2 Delivery O2 Flow Rate FiO2 5/30/20 21:13 98.0 87 18 134/80 97 Room Air Status: improved Disposition: HOME, SELF-CARE Condition: Improved Referrals: [facility],REFERRING (PCP) Patient Instructions: Biliary Colic, Abdominal Pain, Adult Additional Instructions: Please follow-up in [facility], where you were set for having surgery. Halina Parks DO December 27, 2019 23:10
== END 2019-12-26 21:13 | disposition home or self-care (01) ==
LOC: EMR 19:56
DX: K80.50 Calculus of bile duct without cholangitis or cholecystitis without obstruction (principal)
CPT/HCPCS: 36415; 80053; 83690; 85025; 96374; 96375; J2270; J2405; Z7502; 99284

== ENCOUNTER 2019-12-27 23:04 | Emergency (ER) | payer OTHER ==
[~2019-12-27] VITALS: Ht 165.1 cm; Wt 54.4 kg
[2019-12-27 23:15] VITALS: BP 134/72
[2019-12-27 23:51] VITALS: BP 134/72
[2019-12-28] MEDS ORDERED: HYDROcodone/Acetamin 5/325 tab ORAL ONE
--- NOTE | 2019-12-28 00:39 | Emergency Room Report ---
History of Present Illness General Chief Complaint: Abdominal Pain Source: Patient Present Illness HPI Patient presents with complaints of abdominal pain Patient reports that pain came on about 1 to 2 hours ago epigastric similar to her previous pain Denies any fall or trauma denies any chest pain Upon disposition yesterday patient did not follow at the primary facility Denies any fevers denies any diarrhea Denies any radiation with the pain today Allergies: Coded Allergies: No Known Allergies (Unverified , 12/08/19) COVID-19 Screening Contact w/high risk pt: Yes Recent Travel to affected area: No Experienced COVID-19 symptoms?: No 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 COVID-19 Screening: Positive COVID-19 COVID-19 Testing Source: + from outside source Patient History Past Medical History: see triage record Reviewed Nursing Documentation: PMH: Agreed; PSxH: Agreed Review of Systems All Other Systems: negative except mentioned in HPI Physical Exam Vital Signs Date Time Temp Pulse Resp B/P (MAP) Pulse Ox O2 Delivery O2 Flow Rate FiO2 12/27/19 23:05 98.4 85 14 134/72 (92) 99 Room Air Sp02 EP Interpretation: reviewed, normal General Appearance: other - Patient somewhat histrionic upon arrival however becomes more calm after talking Head: normocephalic, atraumatic Eyes: bilateral eye PERRL, bilateral eye EOMI ENT: hearing grossly normal, normal pharynx, TMs + canals normal, uvula midline Neck: full range of motion, supple, no meningismus, no bony tend Respiratory: lungs clear, normal breath sounds, no rhonchi, no respiratory distress, no retraction, no accessory muscle use Cardiovascular #1: normal peripheral pulses, regular rate, rhythm, no edema, no gallop, no JVD, no murmur Gastrointestinal: normal bowel sounds, non tender - On palpation however it does point to the right upper quadrant epigastric area for discomfort, soft, no mass, no organomegaly, non-distended, no guarding, no hernia, no pulsatile mass , no rebound Musculoskeletal: normal inspection Neurologic: motor strength/tone normal, senior interactive producer III-XII nml as tested, oriented x3 , sensory intact, responsive Psychiatric: mood/affect normal Skin: no rash Lymphatic: normal inspection, no adenopathy Medical Decision Making Diagnostic Impression: Primary Impression: abdominal pain ER Course With the patient's history and examination, multiple differentials considered, including but not limited to , ectopic , ovarian torsion, gastritis, cholecystitis, pancreatitis, appendicitis Patient's presentation is consistent with recent presentation The pain does appear to be intermittent and consistent with colic Patient is afebrile white blood cell count has remained normal throughout her stay Patient again was encouraged to follow at primary facility where she reports that she was Being set for surgery At this time patient does not meet criteria for emergency surgery given the lack of any fever or signs of cholecystitis Last Vital Signs Date Time Temp Pulse Resp B/P (MAP) Pulse Ox O2 Delivery O2 Flow Rate FiO2 12/27/19 23:51 98.4 85 14 134/72 99 Room Air Status: improved Disposition: HOME, SELF-CARE Condition: Stable Referrals: NON PHYSICIAN (PCP) [facility] Patient Instructions: Abdominal Pain, Adult Additional Instructions: Patient is provided with the discharge instructions notified to follow up with primary doctor in the next 2-3 days otherwise return to the er with any worsening symptoms. Please note that this report is being documented using [employer] technology. This can lead to erroneous entry secondary to incorrect interpretation by the dictating instrument. Halina Parks DO Dec 28, 2019 00:39
== END 2019-12-27 23:51 | disposition home or self-care (01) ==
LOC: EDBD 23:04 → EMR 23:34
DX: R10.13 Epigastric pain (principal); U07.1 COVID-19
CPT/HCPCS: 99282